=== PATIENT | male | born 2000 | race African-American/Black ===

== ENCOUNTER 2023-03-03 06:58 | Emergency (ER) | payer MEDICAID ==
[~2023-03-03] VITALS: Ht 175.3 cm; Wt 84.8 kg
[2023-03-03 07:16] VITALS: BP 117/81
[2023-03-03] MEDS ORDERED: AMOCLA875 PO (08:21)
== END 2023-03-03 08:38 | disposition home or self-care (01) ==
LOC: ER 06:58
DX: K05.10 Chronic gingivitis, plaque induced (principal)
CPT/HCPCS: 99282